=== PATIENT | male | born 1960 | race Caucasian/White ===

== ENCOUNTER 2017-02-10 15:39 | Inpatient (IN) | payer MEDICAID ==
[~2017-02-10] VITALS: Ht 170.2 cm; Wt 78.0 kg
[2017-02-10] VITALS (9 sets, daily range): BP systolic 108–128; BP diastolic 64–75
--- NOTE | 2017-02-10 16:45 | NUR ---
PRESENTS TO ER C/O RT SHOULDER AND RT SIDE OF FACE PAIN S/P PASSED AT WORK 2 HRS AGO. PATIENT A/OX 4 CURRENTLY. BREATHING EVEN AND UNLABORED. NO SOB. VITALS STABLE. SAFETY AND COMFORT MEASURES IN PLACE. AWAITING MD ORDERS .
--- NOTE | 2017-02-10 16:55 | NUR ---
PATIENT TAKEN TO CT.
[2017-02-10] MEDS ORDERED: IBUPROFEN 400 MG TABLET ONE (16:58)
[2017-02-10] MEDS ORDERED: IBUPROFEN 400 MG TABLET PO ONE (17:00)
--- NOTE | 2017-02-10 17:03 | NUR ---
PATIENT RETURNED FROM CT IN STABLE CONDITION.
--- NOTE | 2017-02-10 17:05 | NUR ---
NEW IV STARTED ON LEFT AC, 18 G. BLOOD DRAWN AND SENT TO LAB.
[2017-02-10 17:36] LABS: BASOPHILS # (AUTO) 0.1 /CMM (0.0-0.2); BASOPHILS % (AUTO) 0.5 % (0.0-2.0); EOSINOPHILS # (AUTO) 0.3 /CMM (0.0-0.7); EOSINOPHILS % (AUTO) 2.2 % (0.0-6.0); HEMATOCRIT 49 % (39-51); HEMOGLOBIN 16.2 g/dL (13.5-17.5); LYMPHOCYTES % (AUTO) 15.1 % (20.0-44.0); MEAN CORPUSCULAR HEMOGLOBIN 32 PG (26.0-33.0); MEAN CORPUSCULAR HGB CONC 34 g/dl (31.0-36.0); MEAN CORPUSCULAR VOLUME 94 fL (80-96); MONOCYTES # (AUTO) 0.9 /CMM (0.1-1.30); MONOCYTES % (AUTO) 7.2 % (2.0-12.0); NEUTROPHILS # (AUTO) 9.8 /CMM (1.8-8.9); PLATELET COUNT (AUTO) 192 /CMM (150-450); RDW COEFFICIENT OF VARIATION 12.6 (11.5-15.0); RED BLOOD CELL COUNT(AUTO) 5.15 MIL/uL (4.5-6.0); WHITE BLOOD COUNT (AUTO) 13.1 K/uL (4.3-11.0)
[2017-02-10 17:46] LABS: CALCIUM, SERUM 8.8 mg/dL (8.5-10.1); CARBON DIOXIDE 30 mmol/L (21-32); CHLORIDE 105 mmol/L (98-107); CREATININE 1.3 mg/dL (0.6-1.3); GLUCOSE 120 mg/dL (74-106); POTASSIUM 3.7 mmol/L (3.5-5.1); SODIUM SERUM 143 mmol/L (136-145); UREA NITROGEN, BLOOD 14 mg/dL (7-18)
[2017-02-10 17:50] LABS: INR 0.9 (0.87-1.13); PROTHROMBIN TIME 9.4 SECS (9.5-12.7)
[2017-02-10 17:55] LABS: TROPONIN I < 0.017 ng/mL (0.00-0.056)
--- NOTE | 2017-02-10 18:50 | NUR ---
PATIENT TAKEN TO STAT HEAD CT.
--- NOTE | 2017-02-10 19:00 | NUR ---
PATIENT RETURNED FROM CT IN STABLE CONDITION.
--- NOTE | 2017-02-10 19:16 | NUR ---
REPORT GIVEN TO REBECCA LEWIS [facility].
--- NOTE | 2017-02-10 19:17 | NUR ---
PT IS SATURATING AT 91% ON RA. PT PLACED ON 2L O2 VIA NC. AND IS NOW SATURATING AT 95%. PT IS ON THE MONITOR AND CONTINUOUS PULSE OX.
--- NOTE | 2017-02-10 19:17 | NUR ---
REC'D REPORT FROM NARCISO GAINES [facility]. PT IS AA&O X4. PT IS C/O OF MILD PAIN OF RT SHOULDER/CLAVICAL. PT IS ON THE MONITOR AND CONTINUOUS PULSE OX.
--- NOTE | 2017-02-10 19:30 | NUR ---
CALLED [facility] FOR READ ON HEAD CT
[2017-02-10] MEDS ORDERED: IOHEXOL-350 100 ML VIAL IV ONE (20:06)
[2017-02-10] MEDS ORDERED: IV NS 0.9% 250 ML IV ONE (20:06)
--- NOTE | 2017-02-10 20:50 | NUR ---
DR GERBER IS AT THE BEDSIDE SPEAKING TO THE PT. PT REC'D A SLING TO THE RUE TO TO RT CLAVICAL FX.
[2017-02-10] MEDS ORDERED: LEVETIRACETAM (500MG) 1,000 MG in IV NS 0.9% 100 ML IV SCH (21:00)
[2017-02-10] MEDS ORDERED: MORPHINE SULFATE INJ 2 MG/ML DISP.SYRIN IV ONE (21:00)
--- NOTE | 2017-02-10 21:00 | NUR ---
WAS ABOUT TO START A 2ND IV AND DR. GERBER DID NOT WANT PT TO HAVE A 2ND IV.
[2017-02-10] MEDS ORDERED: LEVETIRACETAM (500MG) 500 MG/5 ML VIAL IV ONE (21:02)
[2017-02-10] MEDS ORDERED: MORPHINE SULFATE INJ 4 MG/ML DISP.SYRIN ONE (21:02)
--- NOTE | 2017-02-10 21:11 | NUR ---
PT IS ON 3L O2 VIA NC. LAURA AMEZQUITA IS AT THE BEDSIDE WITH DIGITAL MEDIA DESIGNER, CAROLE (ADMITTING). PT IS ON THE MONITOR AND HAS REC'D MEDICATION ORDERED. PT IS AA&O X3. PT DOES NOT KNOW THE YEAR.
--- NOTE | 2017-02-10 21:22 | NUR ---
CALLED TO GIVE REPORT TO ICU. ICU NURSE TO CALL BACK IN 5-10 MINS.
[2017-02-10] MEDS ORDERED: ONDANSETRON HCL/PF 4 MG/2 ML VIAL IVP PRN (21:30)
[2017-02-10] MEDS ORDERED: ACETAMINOPHEN 325 MG TABLET PO PRN (21:30)
--- NOTE | 2017-02-10 22:00 | NUR ---
received pt from ER, s/p fall, resulted in subarachnoid hemorrhage, a/o x4, follows commands, SR, sling on the R arm, s/p clavicular fracture, v/s stable, no pain, pt turns and repositions by himself.
[2017-02-11] VITALS (40 sets, daily range): BP systolic 91–131; BP diastolic 64–89
--- NOTE | 2017-02-11 00:44 | NUR ---
pt is resting in the bed, a/o x4, follows commands, v/s stable, no pain, pt turns and repositions by himself.
--- NOTE | 2017-02-11 04:17 | NUR ---
pt resting in the bed, a/o x4, follow commands, SR, v/s stable, no pain.
[2017-02-11 04:53] LABS: BASOPHILS % (AUTO) 0.3 % (0.0-2.0); EOSINOPHILS # (AUTO) 0.3 /CMM (0.0-0.7); EOSINOPHILS % (AUTO) 2.5 % (0.0-6.0); HEMATOCRIT 45 % (39-51); HEMOGLOBIN 14.8 g/dL (13.5-17.5); LYMPHOCYTES # (AUTO) 2.2 /CMM (0.8-4.8); LYMPHOCYTES % (AUTO) 20.7 % (20.0-44.0); MEAN CORPUSCULAR HEMOGLOBIN 31 PG (26.0-33.0); MEAN CORPUSCULAR HGB CONC 33 g/dl (31.0-36.0); MEAN CORPUSCULAR VOLUME 94 fL (80-96); MONOCYTES # (AUTO) 0.9 /CMM (0.1-1.30); MONOCYTES % (AUTO) 8.3 % (2.0-12.0); NEUTROPHILS # (AUTO) 7.3 /CMM (1.8-8.9); NEUTROPHILS % (AUTO) 68.2 % (43.0-81.0); PLATELET COUNT (AUTO) 157 /CMM (150-450); RDW COEFFICIENT OF VARIATION 13.5 (11.5-15.0); RED BLOOD CELL COUNT(AUTO) 4.75 MIL/uL (4.5-6.0); WHITE BLOOD COUNT (AUTO) 10.7 K/uL (4.3-11.0)
[2017-02-11 05:21] LABS: THYROID STIMULATING HORMONE 2.864 uIU/mL (0.358-3.74)
[2017-02-11 05:53] LABS: ALBUMIN 3.2 g/dL (3.4-5.0); BILIRUBIN,TOTAL 0.6 mg/dL (0.2-1.0); CALCIUM, SERUM 8.5 mg/dL (8.5-10.1); CREATININE 1.1 mg/dL (0.6-1.3); MAGNESIUM 2.1 mg/dL (1.8-2.4); PHOSPHORUS 3.8 mg/dL (2.5-4.9); POTASSIUM 4.1 mmol/L (3.5-5.1); TOTAL PROTEIN, SERUM 6.8 g/dL (6.4-8.2)
[2017-02-11] MEDS: LEVETIRACETAM (250 MG) 250 MG TABLET PO SCH ×2 (08:04→22:05)
[2017-02-11] MEDS: PANTOPRAZOLE 40 MG TABLET.DR PO SCH (08:04)
[2017-02-11] MEDS: MORPHINE SULFATE INJ 2 MG/ML DISP.SYRIN IV PRN (08:08)
--- NOTE | 2017-02-11 09:09 | NUR ---
PT TAKEN DOWN FOR CT HEAD NO CONTRAST (FOLLOW UP CT), PREMEDICATED WITH MORPHINE FOR RIGHT SHOULDER PAIN. PT TOLERATED PROCEDURE WELL.
--- NOTE | 2017-02-11 10:50 | NUR ---
CALLED [facility] FOR CONSULTATION, [facility] PAGES FOR CARLOTTA JASON. Addendum: 02/11/17 at 1215 by CECE GRIFFITH RN CARLOTTA KATE CALLS STATES HE IS IN [place] ABOUT TO START A SURGERY, STATES HE WILL LOOK AT THE SHOULDER XRAY WHEN HE IS OUT.
--- NOTE | 2017-02-11 11:47 | NUR ---
CALLED DR. HERNANDEZ'S OFFICE TO NOTIFY OF CONSULTATION. THE SURVEYOR GEODETIC GAVE ME DR. RICO NUMBER STATING THAT HE TAKES HIS OWN CONSULTATION. CALLED, DID NOT PICKUP LEFT A MESSAGE.
--- NOTE | 2017-02-11 13:40 | NUR ---
PT TRANSFERRED DOWN TO TELE 113-[address] MASHA RAWLS ORDERS. STABLE CONDITION ALL BELONGINGS INCLUDING PT'S WATCH AND CELL PHONE AND EYEGLASSES WERE TRANSFERRED WITH THE PATIENT.
--- NOTE | 2017-02-11 13:46 | NUR ---
ICU NOTE- RECEIVED REPORT FROM JOB [facility]
--- NOTE | 2017-02-11 19:39 | NUR ---
tele closing note- all medications and orders carried out, all treatments carried out, pt kept clean and dry, pt turned and repositioned, ivf infusing. report given to laura for [facility]
--- NOTE | 2017-02-11 20:00 | NUR ---
RN OPENING NOTE RECEIVED PATIENT IN THE BED, ALERT/ORIENTED. [place] LEONE[place] SPEAKING. NO DISTRESS NOTED, DENIES PAIN OR DISCOMFORT NOTED, ON PORTUGUESE TUTOR SINUS RYTHNely, ON ROOM AIR, WAS ADMITTED FOR DX :SYNCOPE, SUBARACHNOID HEMORRHAGE, LEFT AC 20 (SL), GOOD BLOOD RETURN, FLUSHING WELL, NO S/S OF INFECTION OR INFILTRATION NOTED, CALL LIGHT WITHIN REACH, BED IN THE LOW POSITION, SIDE RAILS UP X 2, BELONGINGS NEXT TO THE PATIENT, WILL CONTINUE TO MONITOR
[2017-02-12] VITALS: BP_SYST 118; BP_SYST 125; BP_DIAS 57; BP_DIAS 69
[2017-02-12 04:00] VITALS: BP_SYST 122; BP_SYST 149; BP_DIAS 62; BP_DIAS 89
[2017-02-12] MEDS: MORPHINE SULFATE INJ 2 MG/ML DISP.SYRIN IV PRN ×2 (04:51→16:17)
--- NOTE | 2017-02-12 07:02 | NUR ---
RN CLOSING NOTE PATIENT IS DOSING INTERMITTENTLY, RECEIVED PAIN MEDICATION EARLIER AND ITS EFFECTIVE, NO PAIN NOTED, NO DISTRESS NOTED, NORMAL SINUS RHYTHM ON THE MONITOR, LEFT AC IS INTACT, NO S/S OF INFILTRATION OR INFECTION NOTED, ALL NEEDS ATTENDED, ALL DUE MEDS GIVEN, CALL LIGHT WITHIN REACH,BED IN THE LOW POSITION, SIDE RAILS UP X 2, WILL ENDORSE REPORT TO THE NEXT SHIFT
--- NOTE | 2017-02-12 07:05 | NUR ---
RN NOTES. PT IN BED, ALERT, AWAKE AND ORIENTED. ON RA, BREATH SOUNDS CLEAR. NO NOTED SOB. TELE SR HR 80'S. HL ON L AC, GAUGE #18, DRESSING CDI. R ARM IMMOBILIZER IN PLACE. PT HAS NO C/O PAIN AT THIS TIME. SCD'S BLE. VOIDING. SR UP X2. BED LOW AND LOCKED. CALL LIGHT WITHIN EASY REACH. WILL CONTINUE TO MONITOR.
[2017-02-12 08:00] VITALS: BP 116/58
[2017-02-12] MEDS: PANTOPRAZOLE 40 MG TABLET.DR PO SCH (08:16)
[2017-02-12] MEDS: LEVETIRACETAM (250 MG) 250 MG TABLET PO SCH ×2 (08:17→21:56)
--- NOTE | 2017-02-12 12:00 | NUR ---
RN NOTES ALERT AND ORIENTED. NO CHANGES FROM THE BASELINE. VSS. PAIN ON R SHOULDER TOLERABLE. EATING WELL. VOIDING WELL. WILL CONT TO MONITOR.
[2017-02-12 16:00] VITALS: BP_SYST 123; BP_SYST 93; BP_DIAS 60; BP_DIAS 66
--- NOTE | 2017-02-12 18:00 | NUR ---
RN NOTES NO CHANGES FROM BASELINE. MEDICATED FOR PAIN WITH MORPHINE 2MG X1 IV AND EFFECTIVE. PT WANTS TO KNOW WHEN HE'S GOING HOME. SR UP X2. NO NEUROLOGICAL CHANGES NOTED. NO S/S OF ACUTE DISTRESS NOTED. WILL ENDORSE TO [facility].
--- NOTE | 2017-02-12 19:00 | NUR ---
RN NOTES IN BED RESTING COMFORTABLY. A/O X 3, PT IN STABLE CONDITION, NO S/S OF DISTRESS. SAFETY MEASURES ARE IN PLACE, CALL LIGHT IS IN REACH. WILL CONTINUE TO MONITOR.
[2017-02-12 20:00] VITALS: BP 122/73
[2017-02-13 04:00] VITALS: BP 102/64
--- NOTE | 2017-02-13 06:41 | NUR ---
MS RN CLOSING NOTES ASLEEP AND EASILY AWAKEN, HOB ELEVATED, RESPIRATIONS EVEN AND UNLABORED. 98% R.A IN STABLE CONDITION. NOT IN S/S DISTRESS. KEPT CLEAN AND DRY AND COMFORTABLE, ALL NURSING CARE RENDERED. NEEDS ATTENDED AND ANTICIPATED, FREQUENT VISUAL CHECK DONE FOR SAFETY EVERY 2 HOURS. NO COMPLAINS OF PAIN, ON LOW BED AT ALL TIMES TO ENSURE SAFETY. SAFE HAZARD FREE ENVIRONMENT PROVIDED. CALL LIGHT WITHIN EASY TO REACH. WILL ENDORSE NEXT SHIFT CONTINUITY OF CARE.
[2017-02-13 07:16] LABS: BASOPHILS % (AUTO) 0.4 % (0.0-2.0); EOSINOPHILS # (AUTO) 0.3 /CMM (0.0-0.7); EOSINOPHILS % (AUTO) 2.6 % (0.0-6.0); HEMATOCRIT 48 % (39-51); HEMOGLOBIN 15.9 g/dL (13.5-17.5); MEAN CORPUSCULAR HEMOGLOBIN 31 PG (26.0-33.0); MEAN CORPUSCULAR HGB CONC 34 g/dl (31.0-36.0); MEAN CORPUSCULAR VOLUME 93 fL (80-96); MONOCYTES # (AUTO) 0.8 /CMM (0.1-1.30); MONOCYTES % (AUTO) 7.8 % (2.0-12.0); NEUTROPHILS # (AUTO) 7.3 /CMM (1.8-8.9); NEUTROPHILS % (AUTO) 70.2 % (43.0-81.0); PLATELET COUNT (AUTO) 163 /CMM (150-450); RDW COEFFICIENT OF VARIATION 13.3 (11.5-15.0); WHITE BLOOD COUNT (AUTO) 10.4 K/uL (4.3-11.0)
--- NOTE | 2017-02-13 07:30 | NUR ---
RN MS NOTES PT IN BED, AWAKE, ALERT AND ORIENTED, NO COMPLAINT OF PAIN OR ANY DISCOMFORT, BREATHING PATTERN NORMAL, CALL LIGHT WITHIN EASY REACH, KEPT WARM AND COMFORTABLE IN BED.
[2017-02-13 07:55] LABS: CALCIUM, SERUM 8.9 mg/dL (8.5-10.1); POTASSIUM 4.1 mmol/L (3.5-5.1)
[2017-02-13 08:00] VITALS: BP 113/68
[2017-02-13] MEDS: PANTOPRAZOLE 40 MG TABLET.DR PO SCH (08:38)
[2017-02-13] MEDS: LEVETIRACETAM (250 MG) 250 MG TABLET PO SCH ×2 (08:38→20:22)
[2017-02-13 11:20] VITALS: BP 113/68
[2017-02-13 16:00] VITALS: BP 128/65
[2017-02-13 20:00] VITALS: BP 124/75
--- NOTE | 2017-02-13 20:00 | NUR ---
RN NOTES RECEIVED PT SLEEPING BUT AROUSABLE, A/OX4, IRISH/JAPANESE SPEAKING, WITH SHOULDER SLING ON THE LEFT SHOULDER, DENIES PAIN, NO SOB, CALL LIGHT WITHIN REACH, SIDERAILS UPX2 CONTINUE TO MONITOR
[2017-02-14 04:00] VITALS: BP 120/69
--- NOTE | 2017-02-14 06:30 | NUR ---
RN NOTES AWAKE, MORNING CARE RENDERED, DENIES PAIN, NO SOB, CALL LIGHT WITHIN REACH, SIDERAILS UPX2 PT. NEEDS ATTENDED
[2017-02-14 07:23] LABS: CALCIUM, SERUM 9.3 mg/dL (8.5-10.1); POTASSIUM 3.8 mmol/L (3.5-5.1)
--- NOTE | 2017-02-14 07:30 | NUR ---
RN NOTES RECEIVED PT SLEEPING BUT AROUSABLE, A/OX4, [place] SPEAKING, WITH SHOULDER SLING ON THE LEFT SHOULDER, HL TO LEFT AC FLUSHES WELL, SITE CLEAR, SEE NURSING FLOWSHEET FOR SKIN ISSUES. DENIES PAIN, NO SOB, CALL LIGHT WITHIN REACH, SIDERAILS UPX2 CONTINUE TO MONITOR
[2017-02-14 07:32] LABS: BASOPHILS % (AUTO) 0.5 % (0.0-2.0); EOSINOPHILS # (AUTO) 0.2 /CMM (0.0-0.7); HEMATOCRIT 47 % (39-51); HEMOGLOBIN 15.6 g/dL (13.5-17.5); MEAN CORPUSCULAR HEMOGLOBIN 31 PG (26.0-33.0); MEAN CORPUSCULAR HGB CONC 33 g/dl (31.0-36.0); MEAN CORPUSCULAR VOLUME 94 fL (80-96); MONOCYTES # (AUTO) 0.9 /CMM (0.1-1.30); MONOCYTES % (AUTO) 8.6 % (2.0-12.0); NEUTROPHILS # (AUTO) 6.9 /CMM (1.8-8.9); NEUTROPHILS % (AUTO) 68.9 % (43.0-81.0); PLATELET COUNT (AUTO) 149 /CMM (150-450); RDW COEFFICIENT OF VARIATION 13.1 (11.5-15.0); RED BLOOD CELL COUNT(AUTO) 5.01 MIL/uL (4.5-6.0)
[2017-02-14 08:00] VITALS: BP 117/66
[2017-02-14] MEDS: LEVETIRACETAM (250 MG) 250 MG TABLET PO SCH (08:30)
[2017-02-14] MEDS: PANTOPRAZOLE 40 MG TABLET.DR PO SCH (08:30)
--- NOTE | 2017-02-14 09:30 | NUR ---
RN NOTES ADMINISTERED DUE MEDS.
[2017-02-14] MEDS ORDERED: LEVE250T2 PO (10:33)
--- NOTE | 2017-02-14 15:35 | NUR ---
MS RN NOTES PATIENT DISCHARGED TO HOME TODAY PER MD IN STABLE CONDITION. PROVIDED DC INSTRUCTIONS, MED RECON LIST AND HEALTH TEACHINGS. REMOVED IC ACCESS TO LEFT AC, NO BLEEDING, DRESSING IN PLACE. TO FOLLOW UP WITH DR. QUINTERO AND PCP IN1 WEEK AND WILL MAKE OWN APPOINTMENT. ALL BELONGINGS CHECKED AND RETURNED. ALL PAPERWORKS SIGNED ACCOMPANIED BY DONNA CHIRINOS TO LOBBY AND WILL TAKE HOME BY SELF VIA BUS. PATIENT REFUSED TO HAVE PHOTOS OF SKIN ISSUES TAKEN.
== END 2017-02-14 15:30 | disposition home or self-care (01) | DRG 73 ==
LOC: ER 15:55 → ICU 21:17 → TELE1 02-11 13:14 → MEDSG1 02-12 11:01
PROVIDERS: ADMIT Nurse Practitioner Acute Care; ATTEND Nurse Practitioner Acute Care
DX: G90.8 Other disorders of autonomic nervous system (principal); S06.6X9A Traumatic subarachnoid hemorrhage with loss of consciousness of unspecified duration, initial encounter; S00.03XA Contusion of scalp, initial encounter; J34.2 Deviated nasal septum; F17.210 Nicotine dependence, cigarettes, uncomplicated; D72.829 Elevated white blood cell count, unspecified; S42.034A Nondisplaced fracture of lateral end of right clavicle, initial encounter for closed fracture; W18.30XA Fall on same level, unspecified, initial encounter; Y92.89 Other specified places as the place of occurrence of the external cause
CPT/HCPCS: 36415; 70450-TC; 70486-TC; 70496-TC; 71010-TC; 73030-TC; 80048-TC; 80053-TC; 80061-TC; 83735-TC; 83880; 84100-TC; 84443-TC; 84484-TC; 85025-TC; 85730-TC; 87081-TC; 93307-TC; 95819-TC; A4606; J1953; J2270; J7030; J7050; Q9967; Z7610